=== PATIENT | male | born 1965 | race African-American/Black ===

== ENCOUNTER 2016-09-08 15:57 | Emergency (ER) | payer MEDICAID ==
[~2016-09-08] VITALS: Ht 188 cm; Wt 88.0 kg
[2016-09-08 20:13] VITALS: BP 160/80
== END 2016-09-08 20:58 | disposition home or self-care (01) ==
LOC: ER 15:58
DX: S82.64XA Nondisplaced fracture of lateral malleolus of right fibula, initial encounter for closed fracture (principal); M10.9 Gout, unspecified; Z98.890 Other specified postprocedural states; X50.1XXA Overexertion from prolonged static or awkward postures, initial encounter; Y92.018 Other place in single-family (private) house as the place of occurrence of the external cause
CPT/HCPCS: 29515; 73562; 73610; 99284; Z7610

== ENCOUNTER 2016-12-05 12:02 | Emergency (ER) | payer MEDICAID ==
[~2016-12-05] VITALS: Ht 188 cm; Wt 86.0 kg
[2016-12-05 12:07] VITALS: BP 160/95
== END 2016-12-05 15:01 | disposition left against medical advice (07) ==
LOC: ER 14:31
DX: L02.612 Cutaneous abscess of left foot (principal); M10.9 Gout, unspecified
CPT/HCPCS: 99281

== ENCOUNTER 2017-06-17 20:03 | Emergency (ER) | payer MEDICAID | END 2017-06-17 22:30 | disposition left against medical advice (07) | LOC: ER 22:17 | DX: R51 Headache (principal); Z53.21 Procedure and treatment not carried out due to patient leaving prior to being seen by health care provider ==

== ENCOUNTER 2019-02-01 09:15 | Emergency (ER) | payer MEDICAID ==
[~2019-02-01] VITALS: Ht 188 cm; Wt 88.0 kg
[2019-02-01 10:30] LABS: BASOPHILS % 0.6 % (0.0-2.0); EOSINOPHILS % 0.7 % (0.0-5.0); HEMATOCRIT. 36.3 % (42.0-52.0); HEMOGLOBIN. 12.6 g/dL (14.0-18.0); LYMPHOCYTES % 8.8 % (20.0-50.0); MEAN CORPUSCULAR HEMOGLOBIN 31.4 pg (28.0-32.0); MEAN CORPUSCULAR VOLUME 90.8 fL (80.0-94.0); MEAN PLATELET VOLUME 9.4 fl (7.4-10.4); MONOCYTES % 7.1 % (2.0-8.0); NEUTROPHILS % 82.8 % (40.0-76.0); PLATELET 333 x1000/uL (130-400); RED CELL DISTRIBUTION WIDTH 13.1 % (11.6-14.6)
[2019-02-01 10:37] LABS: CHLORIDE 104 mEq/L (98-107)
[2019-02-01] MEDS ORDERED: KETOROLAC 30MG/ML VIAL IV ONE (11:00)
[2019-02-01 11:16] LABS: CLARITY URINE CLEAR (CLEAR); COLOR URINE DARK YELLOW (YELLOW); KETONES URINE NEGATIVE (NEGATIVE); LEUKOCYTE ESTERASE URINE NEGATIVE (NEGATIVE); NITRITE URINE NEGATIVE (NEGATIVE); OCCULT BLOOD URINE 1+ (NEGATIVE); PH URINE 5.5 (4.5-8.0); PROTEIN URINE TRACE (NEGATIVE); SPECIFIC GRAVITY URINE 1.019 (1.005-1.030)
[2019-02-01 11:53] LABS: *AMPHETAMINES SCREEN URINE NEGATIVE (NEGATIVE); *BARBITURATES SCREEN URINE NEGATIVE (NEGATIVE); *BENZODIAZEPINES SCREEN URINE NEGATIVE (NEGATIVE); *COCAINE SCREEN URINE NEGATIVE (NEGATIVE); METHADONE URINE SCREEN NEGATIVE (NEGATIVE); OPIATES URINE SCREEN NEGATIVE (NEGATIVE)
[2019-02-01 11:54] LABS: CANNABINOID URINE SCREEN NEGATIVE (NEGATIVE); PHENCYCLIDINE URINE SCREEN NEGATIVE (NEGATIVE)
[2019-02-01 14:02] VITALS: BP 150/86
== END 2019-02-01 14:23 | disposition home or self-care (01) ==
LOC: ER 09:15
DX: M10.9 Gout, unspecified (principal); M19.90 Unspecified osteoarthritis, unspecified site; R07.89 Other chest pain; Z98.890 Other specified postprocedural states; I10 Essential (primary) hypertension
CPT/HCPCS: 36415; 71045; 73130; 80053; 80305; 81003; 83880; 84484; 85025; 93005; 96374; 99284; J1885

== ENCOUNTER 2021-11-25 11:05 | Emergency (ER) | payer MEDICAID ==
[~2021-11-25] VITALS: Ht 188 cm; Wt 75.0 kg
[2021-11-25 12:10] VITALS: BP 162/80
[2021-11-25] MEDS ORDERED: AMLO2.5T2 MT (12:42)
[2021-11-25] MEDS ORDERED: AMLODIPINE 2.5MG TABLET PO ONE (12:45)
== END 2021-11-25 13:47 | disposition home or self-care (01) ==
LOC: ER 11:05
DX: I16.0 Hypertensive urgency (principal); M19.90 Unspecified osteoarthritis, unspecified site
CPT/HCPCS: 99283

== ENCOUNTER 2024-05-25 10:37 | Emergency (ER) | payer OTHER, MEDICAID ==
[~2024-05-25] VITALS: Ht 188 cm; Wt 86.0 kg
[~2024-05-25 10:37] MED LIST: AMLO2.5T2 MT
[2024-05-25 10:54] VITALS: O2SAT 98
[2024-05-25 11:21] VITALS: BP 120/59; PULSE 85; RESP 16; TEMP 97.5; O2SAT 99
[2024-05-25] MEDS ORDERED: DOXY100C5 MT (15:08)
[2024-05-25] MEDS ORDERED: AMOX1TAB16 MT (15:08)
== END 2024-05-25 16:09 | disposition home or self-care (01) ==
LOC: ER 10:37
DX: J18.9 Pneumonia, unspecified organism (principal); I10 Essential (primary) hypertension; M10.9 Gout, unspecified; F10.90 Alcohol use, unspecified, uncomplicated; Z98.890 Other specified postprocedural states; Z79.899 Other long term (current) drug therapy; Y90.9 Presence of alcohol in blood, level not specified
CPT/HCPCS: 71045; 99283